=== PATIENT | female | born 1955 | race Caucasian/White ===

== ENCOUNTER 2018-02-11 22:06 | Emergency (ER) | payer BC ==
[2018-02-11 22:13] VITALS: BP 144/85; PULSE 85; RESP 20; TEMP 97.6
--- NOTE | 2018-02-11 22:55 | ED ---
General Adult HPI - General Chief complaint: Shortness of Breath Stated complaint: Chest Pain Time Seen by Provider: 02/11/18 22:54 Source: patient Mode of arrival: wheelchair Limitations: no limitations - History of Present Illness Initial comments: Grace Cai is a 62-year-old obese female who presents to the emergency department today for evaluation of intermittent chest pain, shortness of breath which is worse at night and abdominal distention and weight gain. Patient reports that last fall she was experiencing some chest pain and shortness of breath. She sought care at an outside hospital where she had a normal workup. She followed up with cardiology for a stress test which she reports she believed she failed because her heart rate went very fast but she was told that she passed the stress test and she has not had no further follow- up with cardiology. Patient states that since that time she has continued to have intermittent chest pain. Chest pain is not exertional. It occurs intermittently without provocation last moments and then resolves. Patient reports that recently she's also been experiencing shortness of breath. She states that she wakes during the night feeling as though she can't breathe and has to gasp for air. She states that when she wakes like this her heart is racing. Patient reports that this is been happening and increasing frequency. She states she has the sensation that something is pushing on her diaphragm and she cannot breathe enough. Patient is that she has had some weight gain recently but feels as though all of the weekend is in her abdomen and she is not gaining any weight her arms and legs. She feels as though her abdomen is becoming distended like it did when she was . Discussed with the [facility] primary care physician but been told that there is no findings. Patient's currently vacationing here in [place] from her home in [place]. She reports that she arrived here parents home today and started telling them about her intermittent chest pain and trouble breathing. She states that she became very upset and told him that she is scared to sleep because she thinks she will stop breathing. They became concerned and brought her to the ER for further evaluation. She reports that the symptoms have been persistent for a number of months. She does report that the waking from sleep is occurring more frequently recently. - Related Data Allergies Allergy/AdvReac Type Severity Reaction Status Date / Time acetaminophen [From Vicodin] Allergy Rash/Hives Verified 02/11/18 22:14 hydrocodone [From Vicodin] Allergy Rash/Hives Verified 02/11/18 22:14 latex Allergy Rash/Hives Verified 02/11/18 22:14 Sulfa (Sulfonamide Allergy Rash/Hives Verified 02/11/18 22:14 Antibiotics) Review of Systems ROS Statement: Those systems with pertinent positive or pertinent negative responses have been documented in the HPI. ROS Other: All systems not noted in ROS Statement are negative. Past Medical History Past Medical History: Thyroid Disorder Additional Past Medical History / Comment(s): sleep apnea, History of Any Multi-Drug Resistant Organisms: None Reported Past Surgical History: Ear Surgery Past Psychological History: No Psychological Hx Reported Smoking Status: Former smoker Past Alcohol Use History: None Reported Past Drug Use History: None Reported General Exam Limitations: no limitations General appearance: alert, anxious Head exam: Present: atraumatic, normocephalic Eye exam: Present: normal appearance, PERRL ENT exam: Present: normal exam Neck exam: Present: normal inspection Respiratory exam: Present: normal lung sounds bilaterally. Absent: respiratory distress, wheezes Cardiovascular Exam: Present: regular rate, normal rhythm, normal heart sounds, other (Extremities are warm and well perfused with palpable radial pulses). Absent: systolic murmur, diastolic murmur GI/Abdominal exam: Present: soft (Obese), normal bowel sounds. Absent: tenderness, guarding, rebound, rigid Rectal exam: Present: deferred Extremities exam: Present: normal inspection Back exam: Absent: normal inspection Neurological exam: Present: alert, oriented X3 Psychiatric exam: Present: anxious Skin exam: Present: warm, dry, intact Course Vital Signs 02/11/18 22:08 Temperature 97.6 F Pulse Rate 85 Respiratory 20 Rate Blood Pressure 144/85 O2 Sat by Pulse 100 Oximetry EKG Findings - EKG Comments: EKG Findings:: EKG was obtained that 12:09 AM, rate 74, rhythm is sinus, there is normal axis, normal intervals, CT is 160, QRS 84, QTC 452, there are no acute ST elevations or depressions. No evidence of acute arrhythmia or ischemia or infarction. Medical Decision Making - Medical Decision Making Patient was seen and evaluated, history was obtained from the patient and her mother at bedside As obese female complaining of progressively worsening episodes of waking from sleep feeling short of breath and having her heart racing On initial exam the patient is very anxious, her history is difficult to obtain due to her jumping from one complaint to the other and from one period of time to the other. However I understand that she had a complete workup in March in the [facility], she has been evaluated by her primary care as well as had a stress test with no acute findings. Patient is concerned that her breathing pattern during sleep is causing cardiac damage Patient doesn't appear to have any acute complaints today. Sounds as though these symptoms of been going on for a period of time however today she arrived at her parents house and told them that it may advised her to come in for evaluation. I will obtain labs and x-ray and EKG EKG with no acute findings X-ray with no evidence of pneumonia Labs with no significant abnormalities, d-dimer and troponin both normal Results were discussed with the patient who is father is now at bedside. I advised the patient that I have a high suspicion for sleep apnea as the cause of her symptoms. Patient's father states the patient has been diagnosed with sleep apnea. Patient had failed to tell us this earlier in her evaluation. Patient states that she was diagnosed with sleep apnea 9 years ago, she states that she tried intermittently for 2 years to try different CPAP mask's as well as a BiPAP mask all of them were uncomfortable for her were caused abdominal distention and discomfort. Therefore she has been noncompliant with any treatment for her sleep apnea for the past 7 years. I advised the patient that she needs reevaluation by a sleep specialist to rediscuss the possibility of positive pressure ventillation during sleep.. Patient states she wouldn't consider this, but she will talk to her doctor about having surgery for her sleep apnea. I advised the patient there were no acute findings on her evaluation. Patient expresses some frustration stating that she knows something is wrong and that her sleep apnea is causing damage to her heart. I advised her that this would be better evaluated by an echo or a repeat stress test. Advised the patient that I cannot obtain this here in the ER but if she is having chest pain or feels uncomfortable being discharged home I can discussed with the admitting team if she can meet for observation for her chest discomfort. Patient insists that she is not having any chest pain and she feels comfortable being discharged home. - Lab Data Result diagrams: 02/11/18 23:55 02/11/18 23:55 Lab Results 02/11/18 02/11/18 02/11/18 Range/Units 23:55 23:55 23:55 WBC 5.7 (3.8-10.6) k/uL RBC 4.98 (3.80-5.40) m/uL Hgb 14.0 (11.4-16.0) gm/dL Hct 41.5 (34.0-46.0) % MCV 83.4 (80.0-100.0) fL MCH 28.1 (25.0-35.0) pg MCHC 33.7 (31.0-37.0) g/dL RDW 14.3 (11.5-15.5) % Plt Count 253 (150-450) k/uL Neutrophils % 62 % Lymphocytes % 27 % Monocytes % 5 % Eosinophils % 4 % Basophils % 1 % Neutrophils # 3.6 (1.3-7.7) k/uL Lymphocytes # 1.5 (1.0-4.8) k/uL Monocytes # 0.3 (0-1.0) k/uL Eosinophils # 0.2 (0-0.7) k/uL Basophils # 0.1 (0-0.2) k/uL PT (9.0-12.0) sec INR (<1.2) APTT (22.0-30.0) sec D-Dimer (<0.60) mg/L FEU Sodium 141 (137-145) mmol/L Potassium 3.9 (3.5-5.1) mmol/L Chloride 110 H (98-107) mmol/L Carbon Dioxide 23 (22-30) mmol/L Anion Gap 8 mmol/L BUN 13 (7-17) mg/dL Creatinine 0.60 (0.52-1.04) mg/dL Est GFR (CKD-EPI)AfAm >90 (>60 ml/min/1.73 sqM) Est GFR (CKD-EPI)NonAf >90 (>60 ml/min/1.73 sqM) Glucose 94 (74-99) mg/dL Calcium 8.8 (8.4-10.2) mg/dL Magnesium 1.9 (1.6-2.3) mg/dL Total Bilirubin 0.5 (0.2-1.3) mg/dL AST 31 (14-36) U/L ALT 39 (9-52) U/L Alkaline Phosphatase 69 (38-126) U/L Total Creatine Kinase 170 H (30-135) U/L CK-MB (CK-2) 1.3 (0.0-2.4) ng/mL CK-MB (CK-2) Rel Index 0.8 Troponin I <0.012 (0.000-0.034) ng/mL NT-Pro-B Natriuret Pep pg/mL Total Protein 6.5 (6.3-8.2) g/dL Albumin 4.0 (3.5-5.0) g/dL Urine Color Urine Appearance (Clear) Urine pH (5.0-8.0) Ur Specific [place] (1.001-1.035) Urine Protein (Negative) Urine Glucose (UA) (Negative) Urine Ketones (Negative) Urine Blood (Negative) Urine Nitrite (Negative) Urine Bilirubin (Negative) Urine Urobilinogen (<2.0) mg/dL Ur Leukocyte Esterase (Negative) 02/11/18 02/11/18 02/11/18 Range/Units 23:55 23:55 23:55 WBC (3.8-10.6) k/uL RBC (3.80-5.40) m/uL Hgb (11.4-16.0) gm/dL Hct (34.0-46.0) % MCV (80.0-100.0) fL MCH (25.0-35.0) pg MCHC (31.0-37.0) g/dL RDW (11.5-15.5) % Plt Count (150-450) k/uL Neutrophils % % Lymphocytes % % Monocytes % % Eosinophils % % Basophils % % Neutrophils # (1.3-7.7) k/uL Lymphocytes # (1.0-4.8) k/uL Monocytes # (0-1.0) k/uL Eosinophils # (0-0.7) k/uL Basophils # (0-0.2) k/uL PT 9.9 (9.0-12.0) sec INR 1.0 (<1.2) APTT 25.5 (22.0-30.0) sec D-Dimer 0.29 (<0.60) mg/L FEU Sodium (137-145) mmol/L Potassium (3.5-5.1) mmol/L Chloride (98-107) mmol/L Carbon Dioxide (22-30) mmol/L Anion Gap mmol/L BUN (7-17) mg/dL Creatinine (0.52-1.04) mg/dL Est GFR (CKD-EPI)AfAm (>60 ml/min/1.73 sqM) Est GFR (CKD-EPI)NonAf (>60 ml/min/1.73 sqM) Glucose (74-99) mg/dL Calcium (8.4-10.2) mg/dL Magnesium (1.6-2.3) mg/dL Total Bilirubin (0.2-1.3) mg/dL AST (14-36) U/L ALT (9-52) U/L Alkaline Phosphatase (38-126) U/L Total Creatine Kinase (30-135) U/L CK-MB (CK-2) (0.0-2.4) ng/mL CK-MB (CK-2) Rel Index Troponin I (0.000-0.034) ng/mL NT-Pro-B Natriuret Pep 99 pg/mL Total Protein (6.3-8.2) g/dL Albumin (3.5-5.0) g/dL Urine Color Light Yellow Urine Appearance Clear (Clear) Urine pH 7.0 (5.0-8.0) Ur Specific [place] 1.006 (1.001-1.035) Urine Protein Negative (Negative) Urine Glucose (UA) Negative (Negative) Urine Ketones 1+ H (Negative) Urine Blood Negative (Negative) Urine Nitrite Negative (Negative) Urine Bilirubin Negative (Negative) Urine Urobilinogen <2.0 (<2.0) mg/dL Ur Leukocyte Esterase Negative (Negative) Disposition Clinical Impression: Abdominal distention, Dyspnea Disposition: HOME SELF-CARE Condition: Good Instructions: Dyspnea (ED) Is patient prescribed a controlled substance at d/c from ED?: No Referrals: None,Stated [REFERRING] - 1-2 days Time of Disposition: 01:35
[2018-02-12 00:04] LABS: Basophils # (A) 0.1 k/uL (0-0.2); Basophils % (A) 1 %; Eosinophils # (A) 0.2 k/uL (0-0.7); Eosinophils % (A) 4 %; HCT 41.5 % (34.0-46.0); Lymphocytes # (A) 1.5 k/uL (1.0-4.8); Lymphocytes % (A) 27 %; MCH 28.1 pg (25.0-35.0); MCHC 33.7 g/dL (31.0-37.0); MCV 83.4 fL (80.0-100.0); Monocytes # (A) 0.3 k/uL (0-1.0); Monocytes % (A) 5 %; Neutrophils # (A) 3.6 k/uL (1.3-7.7); Neutrophils % (A) 62 %; Platelet Count 253 k/uL (150-450); RBC 4.98 m/uL (3.80-5.40); RDW 14.3 % (11.5-15.5); WBC 5.7 k/uL (3.8-10.6)
[2018-02-12 00:15] LABS: ALT 39 U/L (9-52); AST 31 U/L (14-36); Alkaline Phosphatase 69 U/L (38-126); Anion Gap 8 mmol/L; Blood Urea Nitrogen 13 mg/dL (7-17); Calcium 8.8 mg/dL (8.4-10.2); Carbon Dioxide 23 mmol/L (22-30); Chloride 110 mmol/L (98-107); Glucose 94 mg/dL (74-99); Magnesium 1.9 mg/dL (1.6-2.3); Potassium 3.9 mmol/L (3.5-5.1); Sodium 141 mmol/L (137-145); Total Bilirubin 0.5 mg/dL (0.2-1.3); Total Protein 6.5 g/dL (6.3-8.2)
[2018-02-12 00:16] LABS: Appearance,Urine Clear (Clear); Bilirubin,Urine Negative (Negative); Blood,Urine Negative (Negative); Color,Urine Light Yellow; Glucose,Urine (UA) Negative (Negative); Ketones,Urine 1+ (Negative); Leukocyte Esterase,Urine Negative (Negative); Nitrite,Urine Negative (Negative); Protein,Urine Negative (Negative); Specific Gravity,Urine 1.006 (1.001-1.035); Urobilinogen,Urine <2.0 mg/dL (<2.0)
[2018-02-12 00:21] LABS: D-Dimer 0.29 mg/L FEU (<0.60); Partial Thromboplastin Time 25.5 sec (22.0-30.0); Prothrombin Time 9.9 sec (9.0-12.0)
[2018-02-12 00:32] LABS: Creatine Kinase 170 U/L (30-135)
[2018-02-12 00:44] LABS: Creatine Kinase MB 1.3 ng/mL (0.0-2.4); Troponin I <0.012 ng/mL (0.000-0.034)
--- NOTE | 2018-02-12 01:09 | XR ---
EXAMINATION TYPE: XR chest 2V DATE OF EXAM: 02/12/2018 COMPARISON: NONE HISTORY: There is only braiding TECHNIQUE: Frontal and lateral views of the chest are obtained. FINDINGS: Heart and mediastinum are normal. Lungs are clear. Diaphragm is normal. Bony thorax appear s intact. Is osteopenia. IMPRESSION: No active cardiopulmonary disease. Normal heart.
== END 2018-02-12 02:24 | disposition home or self-care (01) ==
LOC: EC 22:06
DX: R06.00 Dyspnea, unspecified (principal); R14.0 Abdominal distension (gaseous); R07.9 Chest pain, unspecified; G47.30 Sleep apnea, unspecified; Z68.29 Body mass index [BMI] 29.0-29.9, adult; E66.9 Obesity, unspecified; Z87.891 Personal history of nicotine dependence; Z88.6 Allergy status to analgesic agent; Z88.5 Allergy status to narcotic agent; Z91.040 Latex allergy status; Z88.2 Allergy status to sulfonamides
CPT/HCPCS: 36415; 71046; 80053; 81003; 82550; 82553; 83735; 83880; 84484; 85025; 85379; 85610; 85730; 93005; 99285